=== PATIENT | female | born 1955 | race Caucasian/White ===

== ENCOUNTER 2021-11-19 12:44 | Outpatient (REF) | payer OTHER, SELFPAY ==
--- NOTE | ~2021-11-19 | MM_ITS ---
EXAMINATION: MM SCREENING DIGITAL BREAST TOMOSYNTHESIS, BILATERAL CLINICAL INFORMATION: Screening. Asymptomatic. The lifetime risk of breast cancer based on the Tyrer-Cuzick Model is 10%. COMPARISON: Outside mammography: 12/07/2015 ([facility]). TECHNIQUE: Digital breast tomosynthesis is performed in both the craniocaudal and mediolateral oblique views along with computer-aided detection (CAD). Synthesized 2D images are generated from the tomosynthesis. FINDINGS: There are scattered areas of fibroglandular density (ACR BI-RADS breast composition Category b). Parenchymal pattern is similar to previous outside exam. There are scattered asymmetries and fine fibronodular pattern again noted. No significant mass or architectural abnormality. No abnormal calcifications. The axilla and skin contours are unremarkable. MM/MM tomosynthesis screening BI IMPRESSION: No significant changes from prior outside exam 12/07/2015. ASSESSMENT: BI-RADS 2: Benign RECOMMENDATION: Routine annual mammography screening. This patient's information was entered into a reminder system with a target due date for their next mammogram.
--- NOTE | ~2021-11-19 | MM_ITS ---
EXAMINATION: BONE DENSITOMETRY CLINICAL INDICATION: Asymptomatic menopausal state. COMPARISON: None (current study represents initial baseline exam). TECHNIQUE: Using a Neocis DXA System (software version: 13.1) manufactured by [employer], dual-energy x-ray absorptiometry was performed of the lumbar spine and left hip. The images are of good technical quality. Summary results are attached. FINDINGS: AP SPINE L1-L4: BMD 1.311 g/cm2, Z-score 1.6, T-score 1.1, normal. LEFT FEMUR, NECK: BMD 1.124 g/cm2, Z-score 1.4, T-score 0.6, normal. LEFT FEMUR, TOTAL: BMD 1.364 g/cm2, Z-score 3.3, T-score 2.8, normal. IDENTIFIED RISK FACTORS: Rheumatoid arthritis, osteoporosis, tobacco use (current smoker), menopause. HISTORY OF FRACTURE: None listed. MEDICATIONS: Calcium supplements or multivitamin, vitamin D. MM/XR DEXA axial skeleton IMPRESSION: 1. DIAGNOSIS: Normal bone density based on the lowest T-score value of 0.6 in the femoral neck applying World Health Organization criteria. 2. 10-YEAR FRACTURE RISK PREDICTION, FRAX: According to the guidelines, FRAX calculation should only be performed on patients in the osteopenia bone density category. Therefore, FRAX was not performed on this patient. 3. Treatment Recommendations: NOF guidelines recommend consideration for treatment in postmenopausal women and men age 50 and older presenting with the following: -A hip or vertebral (clinical or morphometric) fracture. -T-score less than or equal to -2.5 at the femoral neck or spine after appropriate evaluation to exclude secondary causes. -Low bone mass at the hip or spine and a 10-year fracture probability by FRAX of greater than or equal to 3% for hip fracture or greater than or equal to 20% for major osteoporotic fracture based on the [place] adapted WHO algorithm. 4. Other Recommendations: All treatment decisions require clinical judgment and consideration of individual patient factors, including patient preferences, comorbidities, previous drug use, risk factors not captured in the FRAX model (e.g. frailty, falls, vitamin D deficiency, increased bone turnover, interval significant decline in bone density) and possible under or overestimation of fracture risk by FRAX. FUTURE SCAN RECOMMENDATION: People with diagnosed cases of osteoporosis or at high risk for fracture should have regular bone mineral density tests. For patients eligible for Medicare, routine testing is allowed once every 2 years. The testing frequency can be increased to one year for patients who have rapidly progressing disease, those who are receiving or discontinuing medical therapy to restore bone mass, or have additional risk factors.
== END 2021-11-19 12:45 | disposition home or self-care (01) ==
LOC: HO.MAMMO 12:44
PROVIDERS: PCP Nurse Practitioner Family; Visit Provider Nurse Practitioner Family
DX: Z13.820 Encounter for screening for osteoporosis (principal); Z78.0 Asymptomatic menopausal state; M05.9 Rheumatoid arthritis with rheumatoid factor, unspecified; F17.200 Nicotine dependence, unspecified, uncomplicated
CPT/HCPCS: 77063; 77067; 77080

== ENCOUNTER 2022-09-06 08:45 | Outpatient (REF) | payer OTHER, SELFPAY ==
[2022-09-06 09:09] LABS: MANUAL DIFF FLAG NO
[2022-09-06 09:19] LABS: Basophils Absolute Auto 0.1 X10*3/uL (0.0-0.2); Basophils Percent Auto 1.1 % (0-2); Eosinophils Absolute Auto 0.2 X10*3/uL (0.0-0.4); Eosinophils Percent Auto 3.9 % (0-4); Hematocrit 44.7 % (37.0-47.0); Hemoglobin 14.6 g/dl (12.0-16.0); Imm Gran Abs Auto 0.03 X10*3/uL (0.00-0.03); Imm Gran Pct Auto 0.6 % (0.0-0.4); Lymphocytes Absolute Auto 1.6 X10*3/uL (1.2-4.9); Lymphocytes Percent Auto 34.8 % (20-40); Mean Corpuscular HGB Conc 32.7 g/dl (31.0-35.0); Mean Corpuscular Hemoglobin 29.9 pg (27.0-33.0); Mean Corpuscular Volume 91.4 fL (80.0-98.0); Mean Platelet Volume 11.3 fL (9.4-12.3); Monocytes Absolute Auto 0.5 X10*3/uL (0.1-1.2); Monocytes Percent Auto 10.1 % (2-11); Neutrophils Absolute Auto 2.3 x10*3/uL (2.0-8.3); Neutrophils Percent Auto 49.5 % (45-73); Platelet Count 164 X10*3/uL (160-400); Red Blood Count 4.89 X10*6/uL (4.20-5.50); Red Cell Distribution Width 12.1 % (11.0-16.0); White Blood Count 4.7 X10*3/uL (4.8-10.8)
[2022-09-06 09:29] LABS: Estimated Average Glucose 186 mg/dL; Hemoglobin A1C 250.4763 umol/L; Hemoglobin A1c % 8.1 %
[2022-09-06 09:54] LABS: Alanine Aminotransferase 29 U/L (0-31); Aspartate Amino Transferase 41 U/L (5-31); Estimated Glomerular Filt Rate > 60
[2022-09-06 10:08] LABS: Alanine Aminotransferase 30 U/L (0-31); Albumin Level 4.3 g/dL (3.5-5.0); Alkaline Phosphatase 39 U/L (39-117); Anion Gap 14 (12-20); Aspartate Amino Transferase 42 U/L (5-31); Blood Urea Nitrogen 12 mg/dL (9-16); Calcium 9.3 mg/dL (8.4-10.2); Carbon Dioxide 28 mmol/L (22-29); Chloride 101 mmol/L (96-108); Cholesterol 151 mg/dL; Estimated Glomerular Filt Rate > 60; Glucose Fasting 181 mg/dL (60-99); HDL Cholesterol 36 mg/dL; LDL Cholesterol Calculated 73 mg/dl; Potassium 3.4 mmol/L (3.3-5.1); Sodium 140 mmol/L (135-145); Total Protein 6.7 g/dL (6.5-8.0); Triglycerides 211 mg/dL
[2022-09-06 10:12] LABS: TSH reflex Free T4 1.06 uIU/mL (0.32-4.0)
[2022-09-06 11:17] LABS: Appearance Urine Cloudy; Color Urine Dark Yellow; Glucose Urine UA Negative (Negative); Leukocyte Esterase Urine Negative (Negative); Nitrite Urine Negative (Negative); Specific Gravity - Urine >= 1.030 (1.005-1.025); UMIC TRIGGER UACC YES; Urine Blood Negative (Negative); Urine Ketones Negative (Negative); Urine Protein 30 (1+) mg/dL (Neg-Trace)
[2022-09-06 11:22] LABS: Bacteria Urine 3+ (None Seen); Hyaline Casts Urine 0-2 /LPF (0-2); RBC Urine 0-2 /HPF (0-2); Squamous Epithelial Cell Urine >20 /HPF (0-2); UACC Culture Trigger YES
== END 2022-09-06 08:46 | disposition home or self-care (01) ==
LOC: HO.LAB 08:45
PROVIDERS: Absent Provider Internal Medicine Rheumatology; PCP Nurse Practitioner Family; Visit Provider Nurse Practitioner Family
DX: M06.09 Rheumatoid arthritis without rheumatoid factor, multiple sites (principal)
CPT/HCPCS: 36415; 80053; 80061; 81001; 82565; 83036; 84443; 84450; 84460; 85025; 87086

== ENCOUNTER 2022-12-03 08:40 | Outpatient (REF) | payer OTHER, SELFPAY ==
[2022-12-03 11:23] LABS: MANUAL DIFF FLAG NO
[2022-12-03 11:33] LABS: Appearance Urine Cloudy; Color Urine Dark Yellow; Glucose Urine UA Negative (Negative); Leukocyte Esterase Urine Trace (Negative); Nitrite Urine Negative (Negative); Specific Gravity - Urine 1.025 (1.005-1.025); UMIC TRIGGER UACC YES; Urine Blood Negative (Negative); Urine Ketones Negative (Negative); Urine Protein 30 (1+) mg/dL (Neg-Trace)
[2022-12-03 11:38] LABS: Basophils Absolute Auto 0.1 X10*3/uL (0.0-0.2); Basophils Percent Auto 0.9 % (0-2); Eosinophils Absolute Auto 0.2 X10*3/uL (0.0-0.4); Eosinophils Percent Auto 3.5 % (0-4); Hematocrit 42.7 % (37.0-47.0); Hemoglobin 13.4 g/dl (12.0-16.0); Imm Gran Abs Auto 0.01 X10*3/uL (0.00-0.03); Imm Gran Pct Auto 0.2 % (0.0-0.4); Lymphocytes Absolute Auto 1.5 X10*3/uL (1.2-4.9); Lymphocytes Percent Auto 28.3 % (20-40); Mean Corpuscular HGB Conc 31.4 g/dl (31.0-35.0); Mean Corpuscular Hemoglobin 28.8 pg (27.0-33.0); Mean Corpuscular Volume 91.6 fL (80.0-98.0); Mean Platelet Volume 12.9 fL (9.4-12.3); Monocytes Absolute Auto 0.7 X10*3/uL (0.1-1.2); Monocytes Percent Auto 12.3 % (2-11); Neutrophils Percent Auto 54.8 % (45-73); Platelet Count 164 X10*3/uL (160-400); Red Blood Count 4.66 X10*6/uL (4.20-5.50); Red Cell Distribution Width 13.4 % (11.0-16.0); White Blood Count 5.5 X10*3/uL (4.8-10.8)
[2022-12-03 11:45] LABS: Estimated Average Glucose 154 mg/dL
[2022-12-03 12:02] LABS: Bacteria Urine Trace (None Seen); RBC Urine 0-2 /HPF (0-2); WBC Urine 0-5 /HPF (0-5)
[2022-12-03 12:15] LABS: Alanine Aminotransferase 20 U/L (0-31); Albumin Level 4.4 g/dL (3.5-5.0); Alkaline Phosphatase 37 U/L (39-117); Anion Gap 14 (12-20); Aspartate Amino Transferase 25 U/L (5-31); Bilirubin Total 0.9 mg/dL (0.0-1.0); Blood Urea Nitrogen 16 mg/dL (9-16); Calcium 9.4 mg/dL (8.4-10.2); Carbon Dioxide 30 mmol/L (22-29); Chloride 100 mmol/L (96-108); Cholesterol 150 mg/dL; Estimated Glomerular Filt Rate > 60; Glucose Fasting 154 mg/dL (60-99); HDL Cholesterol 37 mg/dL; LDL Cholesterol Calculated 62 mg/dl; Potassium 3.4 mmol/L (3.3-5.1); Sodium 141 mmol/L (135-145); TSH reflex Free T4 1.31 uIU/mL (0.32-4.0); Total Protein 6.7 g/dL (6.5-8.0); Triglycerides 259 mg/dL
[2022-12-03 12:18] LABS: Creatinine Urine 330.21 mg/dL; Microalbum/Creatinine Ratio Ur 26.3 ug/mg cr
== END 2022-12-03 08:41 | disposition home or self-care (01) ==
LOC: HO.HMGCLDS 08:40
PROVIDERS: PCP Nurse Practitioner Family; Visit Provider Nurse Practitioner Family
DX: E11.9 Type 2 diabetes mellitus without complications (principal)
CPT/HCPCS: 36415; 80053; 80061; 81001; 82043; 83036; 84443; 85025

== ENCOUNTER 2023-02-11 10:56 | Outpatient (REF) | payer OTHER, SELFPAY ==
--- NOTE | ~2023-02-11 | MM_ITS ---
EXAMINATION: MM SCREENING DIGITAL BREAST TOMOSYNTHESIS, BILATERAL CLINICAL INFORMATION: Screening. Asymptomatic. The lifetime risk of breast cancer based on the Tyrer-Cuzick Model is 8%. COMPARISON: Mammography: This study is compared with prior exams dating back to 2016. TECHNIQUE: Digital breast tomosynthesis is performed in both the craniocaudal and mediolateral oblique views along with computer-aided detection (CAD). Synthesized 2D images are generated from the tomosynthesis. FINDINGS: There are scattered areas of fibroglandular density (ACR BI-RADS breast composition Category b). There are no significant masses, abnormal calcifications, or other abnormalities. MM/MM tomosynthesis screening BI IMPRESSION: No mammographic evidence of malignancy. ASSESSMENT: BI-RADS BI-RADS 1 - Negative RECOMMENDATION: Routine annual mammography screening. 1 year F/U This patient's information was entered into a reminder system with a target due date for their next mammogram.
== END 2023-02-11 10:57 | disposition home or self-care (01) ==
LOC: HO.MAMMO 10:56
PROVIDERS: PCP Nurse Practitioner Family; Visit Provider Nurse Practitioner Family
DX: Z12.31 Encounter for screening mammogram for malignant neoplasm of breast (principal)
CPT/HCPCS: 77063; 77067

== ENCOUNTER → 2023-02-11 11:00 | Outpatient (BNV) | payer OTHER, SELFPAY | PROVIDERS: PCP Nurse Practitioner Family; Visit Provider Radiology Diagnostic Radiology | DX: Z12.31 Encounter for screening mammogram for malignant neoplasm of breast (principal) | CPT/HCPCS: 77063; 77067 ==

== ENCOUNTER 2023-08-05 14:08 | Outpatient (AMB) | payer OTHER, SELFPAY ==
--- NOTE | 2023-08-05 14:10 | MHC.PC.OV ---
Vital Signs 08/05/23 14:14 Height 5 ft 5 in Weight 233 lb BMI 38.8 BP 132/70 Blood Pressure Location Rt brachial Position Sitting Pulse 68 Pulse Source Pulse Oximeter Pulse Oximetry (%) 94 Oxygen Delivery Method Room Air Intake Visit Reasons: 4m follow up ( Medications ) Intake Note: Pt is here today for her 4 mo. f/u Allergies codeine Allergy (Intermediate, Verified 08/05/23 14:11) Hives Tobacco use date assessed: 08/05/23 Fall risk assessment: No Falls in past year Dental Screening Dental Screen Date: 08/05/23 Did you have a dental visit in the last 12 months?: No Was dental information given to patient?: No HPI 4m follow up ( Medications ) HPI Details Pt is a diabetic, on an CARRILLO and a statin. A1C in office today is 6.1. Microalbumin is up to date. Denies polyuria, polydipsia, and neuropathy. Pt denies any signs and symptoms of hypoglycemia and does know how to correct it. Pt has not been checking her blood sugar but has been watching her diet. Will decrease metformin from 500mg bid to 500mg daily (having diarrhea). Refused pneumo vaccines today. [facility] Medical History DM2 (diabetes mellitus, type 2) Chronic constipation Polyarthralgia Smoker Nephrolithiasis Family History Daughter Mental health disorder Social History Housing: Apartment Patient Tobacco Use Status: Former Tobacco user e-Cigarette/Vaping Use: Currently Using (sometimes ) Second Hand Smoke Exposure: No service: No Current occupational status: employed Current occupation: [employer] Current occupational exposures/hazards: No Cognitive needs: No Hearing needs: No Vision needs: No Questionnaire Thrive Questionnaire Date Thrive assessed: 09/09/22 NATHALIE-7 AMB Questionnaire NATHALIE-7 Date NATHALIE - 7 assessed: 09/09/22 Source: Developed by Drs. Sanjay Mcclendon, Phyllis Christopher, Brennan Shah and colleagues, with an educational juan from [employer] Review of Systems Const Reports as per HPI Physical exam (Primary Care) Vital Signs: Last Vital Signs Pulse 68 08/05/23 14:14 BP 132/70 08/05/23 14:14 Pulse Ox 94 08/05/23 14:14 Oxygen Delivery Method Room Air 08/05/23 14:14 BMI result Body Mass Index 38.8 Tobacco/Smoking Status: Tobacco use Status Tobacco use date assessed 08/05/23 08/05/23 14:18 Patient Tobacco Use Status Former Tobacco user 08/05/23 14:11 e-Cigarette/Vaping Use Currently Using (sometimes ) 08/05/23 14:11 Thrive Assessment: Date of Thrive Assessment Date Thrive assessed 09/09/22 08/05/23 14:11 Const General: cooperative Nutritional Appearance: obese Orientation/consciousness: patient oriented x3 Resp Effort & Inspection: normal respiratory effort Auscultation: clear to auscultation bilaterally Cardio Rate: regular rate Rhythm: regular rhythm Heart sounds: S1 normal heart sound present and S2 normal heart sound present Neuro General: patient oriented x3 Extrem Other: bilat feet: large bunions bilat, feet dry and intact, + sensation with use of monofilament Psych Appearance: grossly normal Mental Status: mental status grossly normal Speech and movement: Normal speech and movement present Affect: normal affect Attitude: cooperative Thought process: Normal thought process present Thought content: Normal thought content present Insight: Good insight present (Psych) Judgement: Good judgement present (Psych) Results AMB Hemoglobin A1c AMB Hemoglobin A1c 6.1 % Last Edit by Ghada Oh CMA on 08/05/23 14:30 Results Reviewed Results Reviewed: Laboratory Last Values Hgb A1c (Clinic) 6.1 % (4.0-6.0) H 08/05/23 14:26 Assessment and Plan Assessment & Plan (1) DM2 (diabetes mellitus, type 2): Code(s): E11.9 - Type 2 diabetes mellitus without complications Plan: Labs ordered Plan The patient agreed to the use of a neuropsychology medical consultant for this encounter. Scribed for RADHA Dodd by Za Venegas neuropsychology medical consultant, on 08/05/2023 at 14:30 EST. Orders: Orders Comprehensive [place]. Panel Fast Today E11.9 - Type 2 diabetes mellitus without complications Complete Blood Count Auto Diff Today E11.9 - Type 2 diabetes mellitus without complications TSH reflex Free T4 Today E11.9 - Type 2 diabetes mellitus without complications UA CC w/rflx Micro + Cult Today E11.9 - Type 2 diabetes mellitus without complications Lipid Panel Today E11.9 - Type 2 diabetes mellitus without complications AMB Hemoglobin A1c Today R73.03 - Prediabetes Medications: Changed From metformin ER 500 mg PO BID 90 days 180 tabs 1RF To metformin ER 500 mg PO DAILY 90 tabs 1RF 90 days Coding Level of Care Code Est Pt Level 3 (39825) Diagnoses DM2 (diabetes mellitus, type 2) E11.9
[2023-08-05 14:14] VITALS: BP 132/70; PULSE 68; O2SAT 94; BMI 38.8
== END 2023-08-05 16:12 | disposition home or self-care (01) ==
PROVIDERS: PCP Nurse Practitioner Family; Visit Provider Nurse Practitioner Family
DX: R73.03 Prediabetes (principal); E11.9 Type 2 diabetes mellitus without complications
CPT/HCPCS: 83036; 99213

== ENCOUNTER 2024-12-29 09:52 | Outpatient (REF) | payer MEDICARE, SELFPAY ==
--- OUTSIDE RECORDS SUMMARY | 2024-12-29 10:48 | XMS_ITS | Clinical Summary ---
Author Organization [facility] Facility Address [address] [place] [address], [place] [address] Care Team Providers Care Education Professor Name Role Phone Nolan Taylor NP Primary Care Provider [phone] Social History Tobacco Use Types Packs/Day Years Used Date Smoking Tobacco: Never Assessed Sex and Gender Information Value Date Recorded Sex Assigned at Not on file Legal Sex Male 11:43 AM EDT Gender Identity Not on file Sexual Orientation Not on file Plan of Treatment Health Maintenance Due Date Last Done Comments Colorectal Cancer Screening: Annual FOBT 2003 Colorectal Cancer Screening: Colonoscopy 2003 Colorectal Cancer Screening: Sigmoidoscopy 2003 Pneumococcal Vaccine: 50+ Ye ars (1 of - PCV) 2004 Influenza Vaccine (Season Ended) 2025 Hepatitis B Vaccine Aged Out No longe r eligible based on patient's age to complete this topic [place] [address] Care Teams Education Professor Relationship Specialty Start Date End Date Nolan Taylor NP [facility] [place] [address] PCP - General Nurse Practitioner 12/15/22
[2024-12-29 13:29] LABS: MANUAL DIFF FLAG NO
[2024-12-29 13:41] LABS: Basophils Absolute Auto 0.1 X10*3/uL (0.0-0.2); Basophils Percent Auto 0.7 % (0-2); Eosinophils Absolute Auto 0.1 X10*3/uL (0.0-0.4); Eosinophils Percent Auto 1.1 % (0-4); Hematocrit 35.1 % (37.0-47.0); Hemoglobin 10.5 g/dl (12.0-16.0); Imm Gran Abs Auto 0.05 X10*3/uL (0.00-0.03); Imm Gran Pct Auto 0.5 % (0.0-0.4); Lymphocytes Absolute Auto 1.3 X10*3/uL (1.2-4.9); Lymphocytes Percent Auto 13.7 % (20-40); Mean Corpuscular HGB Conc 29.9 g/dl (31.0-35.0); Mean Corpuscular Hemoglobin 24.4 pg (27.0-33.0); Mean Corpuscular Volume 81.4 fL (80.0-98.0); Mean Platelet Volume 11.6 fL (9.4-12.3); Monocytes Absolute Auto 0.7 X10*3/uL (0.1-1.2); Monocytes Percent Auto 7.2 % (2-11); Neutrophils Absolute Auto 7.2 x10*3/uL (2.0-8.3); Neutrophils Percent Auto 76.8 % (45-73); Platelet Count 269 X10*3/uL (160-400); Red Blood Count 4.31 X10*6/uL (4.20-5.50); Red Cell Distribution Width 14.8 % (11.0-16.0); White Blood Count 9.4 X10*3/uL (4.8-10.8)
[2024-12-29 13:52] LABS: Estimated Average Glucose 338 mg/dL; Hemoglobin A1c % 13.4 % (<6.0)
[2024-12-29 14:15] LABS: Alanine Aminotransferase 11 U/L (0-31); Albumin Level 4.2 g/dL (3.5-5.0); Alkaline Phosphatase 63 U/L (39-117); Anion Gap 17 (12-20); Aspartate Amino Transferase 24 U/L (5-31); Bilirubin Total 0.4 mg/dL (0.0-1.0); Blood Urea Nitrogen 16 mg/dL (9-16); Calcium 9.7 mg/dL (8.4-10.2); Carbon Dioxide 25 mmol/L (22-29); Chloride 100 mmol/L (96-108); Cholesterol 187 mg/dL (<200); Estimated Glomerular Filt Rate > 60; HDL Cholesterol 46 mg/dL (>40); LDL Cholesterol Calculated 82 mg/dL (<100); Potassium 4.1 mmol/L (3.3-5.1); Sodium 138 mmol/L (135-145); Total Protein 7.5 g/dL (6.5-8.0); Triglycerides 296 mg/dL (<150)
[2024-12-29 14:16] LABS: Glucose Fasting 374 mg/dL (60-99)
[2024-12-29 14:19] LABS: TSH reflex Free T4 0.87 uIU/mL (0.32-4.0); Vitamin D 25-OH Total 21.8 ng/mL (>30)
== END 2024-12-29 09:53 | disposition home or self-care (01) ==
LOC: HO.HMGCLDS 09:52
PROVIDERS: PCP Nurse Practitioner Family; Visit Provider Nurse Practitioner Family
DX: E11.9 Type 2 diabetes mellitus without complications (principal); Z78.0 Asymptomatic menopausal state; R19.7 Diarrhea, unspecified; B37.9 Candidiasis, unspecified; F17.200 Nicotine dependence, unspecified, uncomplicated; Z71.6 Tobacco abuse counseling
CPT/HCPCS: 36415; 80053; 80061; 82306; 83036; 84443; 85025; 96127; 99212

== ENCOUNTER 2024-12-29 10:10 | Outpatient (AMB) | payer MEDICARE, SELFPAY ==
[2024-12-29 10:26] VITALS: BP 112/70; PULSE 75; O2SAT 95; BMI 38.8
--- NOTE | 2024-12-29 10:26 | A.OFFPC_ITS ---
Vital Signs 12/29/24 10:26 Height 5 ft 5 in Weight 233 lb BMI 38.8 BP 112/70 Blood Pressure Location Rt brachial Position Sitting Pulse 75 Pulse Source Pulse Oximeter Pulse Oximetry (%) 95 Oxygen Delivery Method Room Air Intake Visit Reasons: follow up-update insurance [employer] Required: No Accompanied by: Daughter Allergies codeine Allergy (Intermediate, Verified 12/29/24 10:29) Hives Medication List - Last Reconciled 12/29/24 by YULIET Srivastava-WENDI abatacept (Orencia ClickJect) mg subcut acetaminophen ER 1,300 mg PO Q8H blood sugar diagnostic (OneTouch Ultra Test strips) Use to check fasting blood sugar and a random blood sugar daily. blood-glucose meter (OneTouch Ultra2 Meter) Use to check fasting blood sugar and a random blood sugar daily. calcium carbonate (Calcium 600) 600 mg PO DAILY [extended shower chair Use daily for safety in personal care. RA/OA for multiple joints including neck, back, hips, knees.] FreeStyle Gilbert Lite (blood-glucose meter) tid NS FreeStyle Lancets (lancets) tid testing NS FreeStyle Lite Strips (blood sugar diagnostic) TID NS FreeStyle Test (blood sugar diagnostic) tid testing NS gabapentin 400 mg PO TID 30 days lancets (OneTouch Delica Lancets) Use to check fasting blood sugar and a random blood sugar daily. leflunomide 20 mg PO DAILY lisinopril-hydrochlorothiazide 20-25 mg 1 tab PO DAILY 90 days magnesium oxide 500 mg PO DAILY metformin ER 500 mg PO DAILY 90 days metoprolol succinate ER 100 mg PO DAILY 90 days mupirocin 2% 1 appl topical BID PRN 30 days pantoprazole 20 mg PO BID 90 days potassium mg PO .qd rosuvastatin 10 mg PO DAILY 90 days sucralfate 1 g PO QID Tobacco use date assessed: 12/29/24 Fall risk assessment: No Falls in past year Last assessed Fall Risk: 12/29/24 Dental Screening Dental Screen Date: 12/29/24 Did you have a dental visit in the last 12 months?: Yes Did you have a dental problem in the last 6 months where you did not have access to dental care?: No Was dental information given to patient?: Patient has dentist HPI follow up-update insurance HPI Details Chief Complaint The patient presents for follow-up regarding her diabetes management and reports gastrointestinal symptoms. History of Present Illness The patient is a 69-year-old female presenting with a follow-up for Type 2 Diabetes Mellitus management. Due to previous insurance difficulties, she had not attended regular appointments but is now managing her healthcare actively. The patient currently uses Metformin 500 mg once daily and reports persistent diarrhea, primarily after meals. Her concerns center around potential repercussions from diet-related intake. Gastrointestinal studies are underway to elucidate the cause of diarrhea. She denies any blood in stool, fever, chills, or notable abdominal pain. The patient is open to less invasive testing such as a Cologuard test for colon cancer screening in lieu of a colonoscopy. Lastly, pt reports having quite a few yeast infections. I explained this could be for a lot of different reasons. I will send cream use external from genitalia, and oral fluconazole, will await lab results. Social History - Insurance issues have previously hinde red healthcare access, now resolved. - Dietary intake includes significant co nsumption of diet foods potentially affecting gastrointestinal health. Health Maintenance - Mammogram ordered - Cologuard test ordered for colorectal cancer screening - Encouraged regular foot care and use o f foot cream - Recommended eye examination, last cond ucted two years ago Review of Systems - Gastrointestinal: Reports diarrhea - Constitutional: Denies fever, chills - Gastrointestinal: Denies abdominal quang n, blood in stool Physical Exam General: Cooperative, healthy appearing, comfortable, no acute distress and well developed, morbid obesity Orientation: Patient oriented x3 Limitations: No limitations Head: Normal to inspection Ears: Hearing grossly normal bilaterally Nose: Normal external nose present Face and sinus: Normal facial exam Eyes: Appearance normal, both eyes and all related structures Neck: Normal visual inspection and Yes full ROM Respiratory: Normal respiratory effort and able to speak in complete sentences. Clear to auscultation bilaterally Cardiovascular: Regular rate and rhythm. Normal S1 and S2, no carotid bruits GI: Normal to inspection. Soft to palpation and nontender Skin: No rashes or lesions noted Neuro: Patient oriented x3 Extremities: Normal to inspection, feet with positive sensation, bunions bilaterally, dry callus on the right foot, lateral distal right foot callus formation with dry skin Results Plan The patient will continue on her current regimen of metformin 500 mg once daily while awaiting results from her comprehensive lab panel, including an A1c to monitor diabetes control. Colorectal cancer screening will be performed using a Cologuard test due to her preference. Preventive care is reinforced with a mammogram order and recommendations for an eye exam given her history. To address foot health, she is advised on the consistent application of foot cream. Further management will be based on the forthcoming lab results and symptomatic changes. Patient was informed and verbally consented to the use of an ambient scribe for clinic note documentation during this visit. Discussion Notes We discussed her current diabetes management plan and the need for regular monitoring of her glucose levels with the recommended lab tests, including A1c. I have outlined the potential connection between her dietary choices and gastrointestinal symptoms, emphasizing caution with diet products. Given her concern for more invasive procedures, I suggested the Cologuard test as an alternative to the commonly recommended colonoscopy. We agreed on additional preventive screenings with a mammogram and eye exam, important in her age group and health status. All treatment plans and recommendations were discussed with her, and she has agreed to follow the plan established today. Patient Instructions - Continue taking Metformin 500 mg after meals each day. - Use a foot cream daily to reduce dryne ss and callus formation. - Plan to have your Cologuard test as de scribed. - Attend scheduled mammogram and arrange an eye examination. - Follow a consistent dietary routine an d monitor for any changes or worsening of diarrhea. [facility] Medical History DM2 (diabetes mellitus, type 2) Chronic constipation Polyarthralgia Smoker Nephrolithiasis Surgical History No pertinent past surgical history Family History Daughter Mental health disorder Social History Housing: Apartment Patient Tobacco Use Status: Former Tobacco user e-Cigarette/Vaping Use: Currently Using (sometimes ) Second Hand Smoke Exposure: No service: No Current occupational status: employed Current occupation: [employer] Current occupational exposures/hazards: No Cognitive needs: No Hearing needs: No Vision needs: No Questionnaire PHQ-9 Over the last 2 weeks, how often have you been bothered by any of the following problems? 1. Little interest or pleasure in doing things: several days 2. Feeling down, depressed, or hopeless: several days 3. Trouble falling or staying asleep, or sleeping too much: more than half the days 4. Feeling tired or having little energy: more than half the days 5. Poor appetite or overeating: more than half the days 6. Feeling bad about yourself - or that you are a failure or have let yourself or your family down: not at all 7. Trouble concentrating on things, such as reading the newspaper or watching television: not at all 8. Moving or speaking so slowly that other people could have noticed. Or the opposite - being so fidgety or restless that you have been moving around a lot more than usual: not at all 9. Thoughts that you would be better off or of hurting yourself in some way: not at all Total score: 8 Depression Screening Interpretation: Positive (denies any si or hi, will have BH reach out to pt) Depression Screening Follow-up: Existing condition Depression Screening Done: Yes 77985 - PHQ-9 Billing: Yes Source: Developed by Drs. Sanjay Mcclendon, Phyllis Christopher, Brennan Shah and colleagues, with an educational juan from [employer]. Thrive Questionnaire Date Thrive assessed: 12/29/24 I am a: Patient What is your living situation today?: I have a steady place to live Within the past 12 months, did the food you bought not last and you didn't have the money to get more?: Often true Within the past 12 months, did you worry whether your food would run out before you got money to buy more?: Never true Do you have trouble paying for medicines?: No Do you have trouble getting transportation to medical appointments?: No Do you have trouble paying your heating and electricity bill?: No Do you have trouble taking care of your child, family member or friend?: No Do you have trouble with day-to-day activities such as bathing, preparing meals, shopping, managing finances, etc.?: Yes Are you currently unemployed and looking for a job?: No Are you interested in more education?: No Please select the resources that you would like help with: None Currently or been in a relationship where the following occur: No concerns reported THRIVE Score: 1 AUDIT C Alcohol Use Questionnaire (AUDIT-C) 1. How often do you have a drink containing alcohol?: Never 3. How often do you have six or more drinks on one occasion?: Never Total Score: 0 Score Reviewed/Action Taken: Yes NATHALIE-7 AMB Questionnaire NATHALIE-7 Date NATHALIE - 7 assessed: 12/29/24 Feeling nervous, anxious, or on edge: 0 = Not at all Not being able to stop or control worryin = Not at all Worrying too much about different things: 1 = Several days Trouble relaxin = Not at all Being so restless that it is hard to sit still: 0 = Not at all Becoming easily annoyed or irritable: 0 = Not at all Feeling afraid as if something awful might happen: 0 = Not at all Total NATHALIE-7 score (0-4 normal; 5-9 mild; 10-14 moderate; 15-21 severe): 1 Source: Developed by Drs. Sanjay Mcclendon, Phyllis Christopher, Brennan Shah and colleagues, with an educational juan from [employer]. NATHALIE-7 Assessment Billing NATHALIE-7 Assessment Tool: NATHALIE-7 Assessment 64024 (denies any si or hi) Physical exam (Primary Care) Vital Signs: Last Vital Signs Pulse 75 12/29/24 10:26 BP 112/70 12/29/24 10:26 Pulse Ox 95 12/29/24 10:26 Oxygen Delivery Method Room Air 12/29/24 10:26 BMI result Body Mass Index 38.8 Tobacco/Smoking Status: Tobacco use Status Tobacco use date assessed 12/29/24 12/29/24 10:38 Patient Tobacco Use Status Former Tobacco user 12/29/24 10:26 e-Cigarette/Vaping Use Currently Using (sometimes ) 12/29/24 10:26 PHQ-9: PHQ-9 Score PHQ-9: Total score 8 12/29/24 10:38 Depression Screening Interpretation: Positive (denies any si or hi, will have BH reach out to pt) Depression Screening Follow-up: Existing condition Thrive Assessment: Date of Thrive Assessment Date Thrive assessed 12/29/24 12/29/24 10:38 Currently or been in a relationship where the following occur: No concerns reported Coding Level of Care Code Est Pt Level 4 (35160) Diagnoses DM2 (diabetes mellitus, type 2) E11.9 Smoker F17.200 Diarrhea R19.7 Post-menopausal Z78.0 Yeast infection B37.9 Additional Codes PHQ-9 - 93965 - PHQ-9 Billing: Yes ([id number]) NATHALIE-7 Assessment Billing - NATHALIE-7 Assessment Tool: NATHALIE-7 Assessment 05733 ([id number]) Assessment & Plan Assessment & Plan (1) DM2 (diabetes mellitus, type 2): Code(s): E11.9 - Type 2 diabetes mellitus without complications Category: Medical (2) Smoker: Code(s): F17.200 - Nicotine dependence, unspecified, uncomplicated Category: Social Hx (3) Diarrhea: Code(s): R19.7 - Diarrhea, unspecified Category: Medical (4) Post-menopausal: Code(s): Z78.0 - Asymptomatic menopausal state Category: Medical (5) Yeast infection: Code(s): B37.9 - Candidiasis, unspecified Category: Medical Plan . Orders: Orders Complete Blood Count Auto Diff Today E11.9 - Type 2 diabetes mellitus without complications TSH reflex Free T4 Today E11.9 - Type 2 diabetes mellitus without complications Lipid Panel Today E11.9 - Type 2 diabetes mellitus without complications Microalbumin, Random (w Creat) Today E11.9 - Type 2 diabetes mellitus without complications GI Panel Today R19.7 - Diarrhea, unspecified H pylori Ag Stool Today R19.7 - Diarrhea, unspecified CDiff Gene PCR Today R19.7 - Diarrhea, unspecified Comprehensive [place]. Panel Fast Today E11.9 - Type 2 diabetes mellitus without complications UA CC w/rflx Micro + Cult Today E11.9 - Type 2 diabetes mellitus without complications MM screening mammo BI Today Z12.31 - Encounter for screening mammogram for malignant neoplasm of breast Vitamin D 25-OH Total Today Z78.0 - Asymptomatic menopausal state Referrals Lung Cancer Screening Referral F17.200 - Nicotine dependence, unspecified, uncomplicated Cologuard Test Z12.11 - Encounter for screening for malignant neoplasm of colon, Z12.12 - Encounter for screening for malignant neoplasm of rectum Medications: New fluconazole 150 mg PO Q3D 2 tabs 1RF ketoconazole 2% 1 appl topical BID 60 grams 0RF
--- OUTSIDE RECORDS SUMMARY | 2024-12-29 11:08 | XMS_ITS | Clinical Summary ---
Author Organization [facility] Facility Address [address] [place] [address], [place] [address] Care Team Providers Care Pipelines Superintendent Name Role Phone Nolan Talyor NP Primary Care Provider [phone] Social History Tobacco Use Types Packs/Day Years [...] patient's age to complete this topic [place] [address] Care Teams Pipelines Superintendent Relationship Specialty Start Date End Date Nolan Taylor NP [facility] [place] [address] PCP - General Nurse Practitioner 12/15/22
== END 2024-12-29 11:46 | disposition home or self-care (01) ==
PROVIDERS: PCP Nurse Practitioner Family; Visit Provider Nurse Practitioner Family
DX: E11.9 Type 2 diabetes mellitus without complications (principal); F17.200 Nicotine dependence, unspecified, uncomplicated; R19.7 Diarrhea, unspecified; Z78.0 Asymptomatic menopausal state; B37.9 Candidiasis, unspecified

== ENCOUNTER 2025-01-20 14:47 | Outpatient (AMB) | payer MEDICARE, SELFPAY ==
--- NOTE | 2025-01-20 14:51 | MHC.OFFVIS ---
Vital Signs 01/20/25 14:56 Height 5 ft 5 in Weight 230 lb 2.601 oz BMI 38.3 BP 108/64 Blood Pressure Location Rt brachial Position Sitting Pulse 71 Pulse Source Pulse Oximeter Pulse Oximetry (%) 97 Oxygen Delivery Method Room Air Intake Visit Reasons: Type 2 diabetes mellitus with hyperglycemia Intake Note: New patient internally referred by PCP Dr. Taylor for T2DM Patient will receive Michael 3 Plus through: [employer], if patient does not receive within 1-2 weeks, advised to contact office to be switched to a another [employer] company. Last Diabetic Eye exam: Due, couple years ago Last Podiatry Visit: Does not see a Oil Well Shooter Random Glucose: 218 mg/dl HgA1C: 13.4% 12/29/2024 R Programmer Required: No Accompanied by: Daughter Allergies codeine Allergy (Intermediate, Verified 01/20/25 15:03) Hives Medication List - Last Reconciled 01/20/25 by MARK Phelan abatacept (Orencia ClickJect) mg subcut acetaminophen ER 1,300 mg PO Q8H calcium carbonate (Calcium 600) 600 mg PO DAILY cholecalciferol (vitamin D3) 50 mcg PO DAILY dextrose (TRUEplus Glucose) 15 grams (32 mL) PO Q15M PRN [extended shower chair Use daily for safety in personal care. RA/OA for multiple joints including neck, back, hips, knees.] fluconazole 150 mg PO Q3D 2 doses FreeStyle [place] Lite (blood-glucose meter) tid NS FreeStyle Lancets (lancets) tid testing NS FreeStyle Lite Strips (blood sugar diagnostic) TID NS FreeStyle Test (blood sugar diagnostic) tid testing NS gabapentin 400 mg PO TID 30 days ketoconazole 2% 1 appl topical BID 30 days lancets (OneTouch Delica Lancets) Use to check fasting blood sugar and a random blood sugar daily. Lantus Solostar U-100 Insulin (insulin glargine) 10 units (0.1 mL) subcut QPM NS leflunomide 20 mg PO DAILY lisinopril-hydrochlorothiazide 20-25 mg 1 tab PO DAILY 90 days magnesium oxide 500 mg PO DAILY metformin ER 500 mg PO DAILY 90 days metoprolol succinate ER 100 mg PO DAILY 90 days mupirocin 2% 1 appl topical BID PRN 30 days pantoprazole 20 mg PO BID 90 days pen needle, diabetic Inject insulin once a day potassium mg PO .qd rosuvastatin 10 mg PO DAILY 90 days sucralfate 1 g PO QID tirzepatide (Mounjaro) 2.5 mg (0.5 mL) subcut QWEEK HPI Comments Details: This is a 69-year-old female with a past medical history of uncontrolled diabetes, microalbuminuria, rheumatoid arthritis and anemia presenting for an initial diabetic management consult. She is here with her daughter, Cammy. The patient says she was diagnosed only a few weeks ago with type 2 diabetes and that she was prediabetic before, but chart review shows that she has had a hemoglobin A1c above 6.5% since 2022. She was referred because her hemoglobin A1c increased from 6.1% to 13.4%. Patient sites dietary indiscretion and lack of exercise as the reason for this. Reviewed glucometer download for January 06 to January 20. Average glucose 265 In range 4% Highest for 409 Lowest 135 Current medication regimen: Metformin extended release 500 mg daily, Lantus 10 units at bedtime. She has been on metformin a long time, and she started Lantus a few weeks ago. Past medication: None Compliance issues: Diarrhea on higher doses of metformin, and she still has diarrhea on the lower dose. She does not drink juice or soda. She has coffee in the morning. She is trying to educate herself about a diabetic diet, and she also follows some tips from weight watchers. She has changed her diet a lot within the last week. Hypoglycemia symptoms: None Hyperglycemia symptoms: None Eye exam: Overdue, referred Microvascular complications: Microalbuminuria Macrovascular complications: None Hypertension: treated with metoprolol extended-release 100 mg daily, lisinopril-HCTZ 20-25 mg daily Hyperlipidemia: treated with rosuvastatin 10 mg daily ROS: Constitutional: No unexplained weight loss, fever, chills, fatigue or night sweats. Eyes: No vision changes, blurry vision, double vision Respiratory: No shortness of breath Cardiovascular: No chest pain, chest pressure or chest discomfort. No palpitations or pedal edema. Gastrointestinal: No anorexia, nausea, vomiting or diarrhea. No abdominal pain Neurologic: No headache, dizziness or syncope. Endocrine: No cold or heat intolerance. No polyuria or polydipsia. Physical exam: Constitutional: Alert, in no distress. Neck: Supple, Full range of motion. No lymphadenopathy. No palpable thyroid masses. Respiratory: Clear to auscultation. Cardiovascular: S1 S2 regular. No murmurs. Feet: Warm and well perfused. No clubbing, cyanosis or edema. Intact peripheral pulses. [facility] Medical History DM2 (diabetes mellitus, type 2) Chronic constipation Polyarthralgia Smoker Nephrolithiasis Surgical History No pertinent past surgical history Family History Daughter Mental health disorder Social History Housing: Apartment Patient Tobacco Use Status: Former Tobacco user e-Cigarette/Vaping Use: Currently Using (sometimes ) Second Hand Smoke Exposure: No service: No Current occupational status: employed Current occupation: [employer] Current occupational exposures/hazards: No Cognitive needs: No Hearing needs: No Vision needs: No Physical Exam Vital Signs: Last Vital Signs Pulse 71 01/20/25 14:56 BP 108/64 01/20/25 14:56 Pulse Ox 97 01/20/25 14:56 Oxygen Delivery Method Room Air 01/20/25 14:56 BMI result Body Mass Index 38.3 Results Reviewed Results Reviewed: Laboratory Last Values Glucose (Clinic) 218 mg/dL (60-115) H 01/20/25 15:11 Laboratory Tests 12/03/22 12/03/22 08/05/23 08:58 09:00 14:26 Creatinine Estimated GFR Hgb A1c (Clinic) 6.1 H Hemoglobin A1c % 7.0 Triglycerides Cholesterol LDL Cholesterol, Calc HDL Cholesterol TSH Urine Creatinine 330.21 Urine Microalbumin 87.0 Microalb/Creat Ratio 26.3 12/29/24 12/29/24 09:59 11:15 Creatinine 0.84 Estimated GFR > 60 Hgb A1c (Clinic) Hemoglobin A1c % 13.4 H Triglycerides 296 H Cholesterol 187 LDL Cholesterol, Calc 82 HDL Cholesterol 46 TSH 0.87 Urine Creatinine Urine Microalbumin Microalb/Creat Ratio Laboratory Tests 12/29/24 11:15 AST 24 ALT 11 Assessment & Plan Assessment & Plan (1) Uncontrolled diabetes mellitus with hyperglycemia: Code(s): E11.65 - Type 2 diabetes mellitus with hyperglycemia Category: Medical Plan: In summary this is a 69-year-old female with uncontrolled type 2 diabetes on Lantus insulin and metformin. Discussed pathophysiology of Type II Diabetes Mellitus with the patient in detail.? I explained the group home risks and complications associated with uncontrolled diabetes including nephropathy, neuropathy, peripheral vascular disease, retinopathy, increased risk of heart disease and stroke.? The patient is referred for an eye exam. Intolerant of higher doses of metformin, and she still has diarrhea on the lower dose. We will plan to try to stop this medication once blood sugars have improved. Increase Lantus from 10 units to 16 units at bedtime. Start Mounjaro 2.5 mg weekly. She denies contraindications to GLP 1. States sister had thyroid cancer but does not think medullary. She will confirm this before starting the medication. Continue Metformin extended release 500 mg once daily for now. Advised to DC this medication if she has low blood sugars under 70. Given and reviewed written instructions for hypo and hyperglycemia. Glucose gel packets sent to pharmacy. Diabetes meal planning and smart snack list given to patient. Recommended she review information on diabetes.org. Refer to dietitian. Patient says she is awaiting her 1st delivery of Michael 3 Plus CGM. I asked her to call if she has not received it by next week. Patient has used a sample before. Unfortunately no samples in the office today. Check B12 given metformin use and random microalbumin. Follow up in 4 weeks for diabetes. Orders: Orders Microalbumin, Random (w Creat) Today E11.9 - Type 2 diabetes mellitus without complications Vitamin B12 Today Z91.89 - Other specified personal risk factors, not elsewhere classified Referrals Process Control Operator Nutrition Referral E11.65 - Type 2 diabetes mellitus with hyperglycemia Ophthalmology Referral E11.65 - Type 2 diabetes mellitus with hyperglycemia Medications: New dextrose (TRUEplus Glucose) until symptoms of low blood sugar are controlled 15 grams (32 mL) PO Q15M PRN 128 mL 3RF hypoglycemia tirzepatide (Mounjaro) for 4 weeks 2.5 mg (0.5 mL) subcut QWEEK 2 mL 0RF Refilled FreeStyle Lite Strips (blood sugar diagnostic) TID 100 ea 5RF NS E11.9 - Type 2 diabetes mellitus without complications FreeStyle Lancets (lancets) tid testing 100 ea 5RF NS E11.9 - Type 2 diabetes mellitus without complications Patient Instructions: Increase Lantus from 10 units to 16 units at bedtime. Start Mounjaro 2.5 mg weekly. This will need a prior authorization. Continue Metformin extended release 500 mg once daily for now. If you have low blood sugars under 70 stop taking this. If you experience low blood sugar, treat this by eating a chewable fruit candy like skittles or jelly beans (about 8 pieces), 4 ounces (1/2 cup) of fruit juice (not diet), 1 tablespoon of honey or 4 glucose tablets or 1 glucose gel packet. If your blood sugar is under 55, take double the amount of one of the above. Recheck your blood sugar in 15 minutes. www.diabetes.org Coding Level of Care Code New Pt Level 5 (48604) Complex EM visit Add On G2211 Diagnoses Uncontrolled diabetes mellitus with hyperglycemia E11.65 Time Spent (min) 55 Comment Education, direct patient care, completing documentation
[2025-01-20 14:56] VITALS: BP 108/64; PULSE 71; O2SAT 97; BMI 38.3
[2025-01-20 15:18] LABS: Glucose, Whole Blood 218 mg/dL (60-115)
== END 2025-01-20 16:02 | disposition home or self-care (01) ==
LOC: HO.ENCR 14:48
PROVIDERS: PCP Nurse Practitioner Family; Visit Provider Physician Assistant Medical
DX: E11.65 Type 2 diabetes mellitus with hyperglycemia (principal); Z79.4 Long term (current) use of insulin

== ENCOUNTER → 2025-01-20 14:47 | Outpatient (BNVA) | payer MEDICARE, SELFPAY | PROVIDERS: PCP Nurse Practitioner Family; Visit Provider Physician Assistant Medical | DX: E11.65 Type 2 diabetes mellitus with hyperglycemia (principal); Z79.4 Long term (current) use of insulin; Z79.84 Long term (current) use of oral hypoglycemic drugs | CPT/HCPCS: 82947; 99202 ==

== ENCOUNTER 2025-02-24 14:19 | Outpatient (AMB) | payer MEDICARE, SELFPAY ==
--- NOTE | 2025-02-24 14:23 | A.OFFVIS_ITS ---
Vital Signs 02/24/25 14:27 Height 5 ft 5 in Weight 229 lb 4.492 oz BMI 38.2 BP 132/74 Blood Pressure Location Rt brachial Position Sitting Pulse 77 Pulse Source Pulse Oximeter Pulse Oximetry (%) 96 Oxygen Delivery Method Room Air Intake Visit Reasons: Type II Diabetes Intake Note: Patient present today to follow up on Type 2 Diabetes Mellitus. Last Diabetic Eye exam: 01/26/2025 [facility] Last Podiatry Visit: Does not see a Horse Rancher Random Glucose: 145 mg/dl HgA1C: 13.4% 12/29/2024/ Automatic Bandsaw Tender Required: No Accompanied by: Daughter Allergies codeine Allergy (Intermediate, Verified 02/24/25 14:27) Hives Medication List - Last Reconciled 02/24/25 by MARK Phelan abatacept (Orencia ClickJect) mg subcut acetaminophen ER 1,300 mg PO Q8H alcohol swabs (Alcohol Pads) 1 pad topical TID calcium carbonate (Calcium 600) 600 mg PO DAILY cholecalciferol (vitamin D3) 50 mcg PO DAILY dextrose (TRUEplus Glucose) 15 grams (32 mL) PO Q15M PRN [extended shower chair Use daily for safety in personal care. RA/OA for multiple joints including neck, back, hips, knees.] fluconazole 150 mg PO Q3D 2 doses FreeStyle [place] Lite (blood-glucose meter) tid NS FreeStyle Lancets (lancets) tid testing NS FreeStyle Lite Strips (blood sugar diagnostic) TID NS FreeStyle Test (blood sugar diagnostic) tid testing NS gabapentin 400 mg PO TID 30 days insulin glargine (Lantus Solostar U-100 Insulin) 16 units subcut QPM ketoconazole 2% 1 appl topical BID 30 days lancets (OneTouch Delica Lancets) Use to check fasting blood sugar and a random blood sugar daily. leflunomide 20 mg PO DAILY lisinopril-hydrochlorothiazide 20-25 mg 1 tab PO DAILY 90 days magnesium oxide 500 mg PO DAILY metformin ER 500 mg PO DAILY 90 days metoprolol succinate ER 100 mg PO DAILY 90 days mupirocin 2% 1 appl topical BID PRN 30 days pantoprazole 20 mg PO BID 90 days pen needle, diabetic Inject insulin once a day potassium mg PO .qd rosuvastatin 10 mg PO DAILY 90 days sertraline 50 mg PO DAILY sucralfate 1 g PO QID tirzepatide (Mounjaro) 7.5 mg (0.5 mL) subcut QWEEK HPI Comments Details: This is a 69-year-old female with a past medical history of uncontrolled diabetes, microalbuminuria, rheumatoid arthritis and anemia presenting for follow up. She is here with her daughter, Cammy. She has had type 2 diabetes since 2022. She was referred because her hemoglobin A1c increased from 6.1% to 13.4%. Patient sites dietary indiscretion and lack of exercise as the reason for this. Reviewed Michael 3 plus February 11 to February 24 CGM active 97% Average glucose 149 G IN 6.9% Glucose variability 17.7% Very high 0% High 14% Target range 86% 0% hypoglycemia She has occasional hyperglycemia after breakfast and dinner. Current medication regimen: Metformin extended release 500 mg daily, Lantus 16 units at bedtime and Mounjaro 5 mg weekly. Past medication: None Compliance issues: Diarrhea on higher doses of metformin, and she still has diarrhea on the lower dose. She is following a diabetic diet. She has an upcoming appointment with the dietitian. Hypoglycemia symptoms: None Hyperglycemia symptoms: None Eye exam: [facility]-no retinopathy Microvascular complications: Microalbuminuria Macrovascular complications: None Hypertension: treated with metoprolol extended-release 100 mg daily, lisinopril- HCTZ 20-25 mg daily Hyperlipidemia: treated with rosuvastatin 10 mg daily ROS: Constitutional: No unexplained weight loss, fever, chills, fatigue or night sweats. Eyes: No vision changes, blurry vision, double vision Respiratory: No shortness of breath Cardiovascular: No chest pain, chest pressure or chest discomfort. No palpitations or pedal edema. Gastrointestinal: No anorexia, nausea, vomiting or diarrhea. No abdominal pain Neurologic: No headache, dizziness or syncope. Endocrine: No cold or heat intolerance. No polyuria or polydipsia. Physical exam: Constitutional: Alert, in no distress. Neck: Supple, Full range of motion. No lymphadenopathy. No palpable thyroid masses. Respiratory: Clear to auscultation. Cardiovascular: S1 S2 regular. No murmurs. [facility] Medical History (Updated 02/24/25 @ 16:57 by MARK Phelan) Personal history of nicotine dependence DM2 (diabetes mellitus, type 2) Chronic constipation Polyarthralgia Nephrolithiasis Surgical History No pertinent past surgical history Family History Daughter Mental health disorder Social History Housing: Apartment Patient Tobacco Use Status: Former Tobacco user e-Cigarette/Vaping Use: Currently Using (sometimes ) Second Hand Smoke Exposure: No service: No Current occupational status: employed Current occupation: [employer] Current occupational exposures/hazards: No Cognitive needs: No Hearing needs: No Vision needs: No Physical Exam Vital Signs: Last Vital Signs Pulse 77 02/24/25 14:27 BP 132/74 02/24/25 14:27 Pulse Ox 96 02/24/25 14:27 Oxygen Delivery Method Room Air 02/24/25 14:27 BMI result Body Mass Index 38.2 Office Procedures Glucose Monitoring Details Details: see hpi 16996 - Glucose monitoring, continuous-physician I&R Procedure code (CPT) selection complete Results Reviewed Results Reviewed: Laboratory Tests 12/03/22 12/03/22 08/05/23 08:58 09:00 14:26 Creatinine Estimated GFR Hgb A1c (Clinic) 6.1 H Hemoglobin A1c % 7.0 Triglycerides Cholesterol LDL Cholesterol, Calc HDL Cholesterol TSH Urine Creatinine 330.21 Urine Microalbumin 87.0 Microalb/Creat Ratio 26.3 12/29/24 12/29/24 09:59 11:15 Creatinine 0.84 Estimated GFR > 60 Hgb A1c (Clinic) Hemoglobin A1c % 13.4 H Triglycerides 296 H Cholesterol 187 LDL Cholesterol, Calc 82 HDL Cholesterol 46 TSH 0.87 Urine Creatinine Urine Microalbumin Microalb/Creat Ratio Laboratory Tests 12/29/24 11:15 AST 24 ALT 11 Assessment & Plan Assessment & Plan (1) Uncontrolled diabetes mellitus with hyperglycemia: Code(s): E11.65 - Type 2 diabetes mellitus with hyperglycemia Category: Medical Qualifiers: Diabetes mellitus type: type 2 Qualified Code(s): E11.65 - Type 2 diabetes mellitus with hyperglycemia Plan: In summary this is a 69-year-old female with type 2 diabetes on Lantus, metformin and Mounjaro. Diabetes is now controlled per CGM. Discussed pathophysiology of Type II Diabetes Mellitus with the patient in detail.? I explained the exterminator risks and complications associated with uncontrolled diabetes including nephropathy, neuropathy, peripheral vascular disease, retinopathy, increased risk of heart disease and stroke.? Eye exam is up-to-date. Continue Lantus 16 units at bedtime. When you increase your dose of Mounjaro to 7.5 mg discontinue metformin. She has an upcoming appointment with the dietitian. Follow up in 6 weeks for type 2 diabetes. Orders: Orders AMB Glucose Monitoring Today MARK Phelan E11.9 - Type 2 diabetes mellitus without complications Medications: New alcohol swabs (Alcohol Pads) 1 pad topical TID 200 ea 5RF MARK Phelan E11.65 - Type 2 diabetes mellitus with hyperglycemia tirzepatide (Mounjaro) 7.5 mg (0.5 mL) subcut QWEEK 2 mL 0RF MARK Phelan Changed From Lantus Solostar U-100 Insulin (insulin glargine) 10 units (0.1 mL) subcut QPM 15 mL 0RF NS E11.65 - Type 2 diabetes mellitus with hyperglycemia To insulin glargine (Lantus Solostar U-100 Insulin) 16 units subcut QPM E11.65 - Type 2 diabetes mellitus with hyperglycemia Nolan Taylor, [facility]- Refilled pen needle, diabetic Inject insulin once a day 100 ea 5RF MARK Phelan E11.65 - Type 2 diabetes mellitus with hyperglycemia Patient Instructions: When you finish the prescription for Mounjaro 5 mg, start Mounjaro 7.5 mg weekly. When you start Mounjaro 7.5 mg, you can stop Metformin 500 mg daily. Continue Lantus 16 units daily. If you experience low blood sugar (under 70), treat this by eating a chewable fruit candy like skittles or jelly beans (about 8 pieces), 4 ounces (1/2 cup) of fruit juice (not diet), 1 tablespoon of honey or 4 glucose tablets. If your blood sugar is under 55, take double the amount of one of the above. Recheck your blood sugar in 15 minutes. Coding Level of Care Code Est Pt Level 4 (83796) Diagnoses Uncontrolled type 2 diabetes mellitus with hyperglycemia E11.65 Diabetes mellitus type: type 2 CPT Codes Details - CPT: 13048 - Glucose monitoring, continuous-physician I&R ([id number])
--- OUTSIDE RECORDS SUMMARY | 2025-02-24 14:23 | XMS_ITS | Clinical Summary ---
Author Organization [facility] Facility Address [address] [place] [address], [place] [address] Care Team Providers Care Loom Fixer Name Role Phone Nolan Taylor NP Primary Care Provider Social History Tobacco Use Types Packs/Day Years [...] Pneumococcal Vaccine: 50+ Ye ars (1 of 1 - PCV) 2004 Influenza Vaccine (#1) 2025 Hepatitis B Vaccine Aged Out No longe r eligible based on patient's age to complete this [place] [address] Care Teams Loom Fixer Relationship Specialty Start Date End Date Nolan Taylor NP [facility] [place] [address] PCP - General Nurse Practitioner 12/15/22
[2025-02-24 14:27] VITALS: BP 132/74; PULSE 77; O2SAT 96; BMI 38.2
[2025-02-24 14:43] LABS: Glucose, Whole Blood 145 mg/dL (60-115)
== END 2025-02-24 15:12 | disposition home or self-care (01) ==
LOC: HO.ENCR 14:20
PROVIDERS: PCP Nurse Practitioner Family; Visit Provider Physician Assistant Medical
DX: E11.65 Type 2 diabetes mellitus with hyperglycemia (principal)

== ENCOUNTER → 2025-02-24 14:19 | Outpatient (BNVA) | payer MEDICARE, SELFPAY | PROVIDERS: PCP Nurse Practitioner Family; Visit Provider Physician Assistant Medical | DX: E11.65 Type 2 diabetes mellitus with hyperglycemia (principal); Z79.4 Long term (current) use of insulin; Z79.85 Long-term (current) use of injectable non-insulin antidiabetic drugs | CPT/HCPCS: 82947; 99212 ==

== ENCOUNTER 2025-03-01 14:50 | Outpatient (AMB) | payer MEDICARE, SELFPAY ==
--- NOTE | 2025-03-01 11:08 | A.OFFVIS_ITS ---
VS Expanded 03/01/25 11:23 Height 5 ft 5 in Weight 229 lb BMI 38.1 Intake Visit Reasons: Type 2 diabetes mellitus with hyperglycemia Allergies codeine Allergy (Intermediate, Verified 02/24/25 14:27) Alphonse Nutrition Presentation Details: Pt presents for MNT TV for T2DM, newly dx Pt reports blood glucose are improving with 94% within range Pt is interested in structured meal planning , tried wt watchers in the past and was helpful Typical meal 9 am breakfast: potatoes, egg beaters , water 12 lunch: salad/chickpeas and eggs or chicken 6 pm: high protein pasta/chicken, salad, water physical activity: sedentary r/t RA/OA etoh/smoking---- food frequency fruits: 0-1/d vex/wk dairy: 2/da fish 0-1/wk BS Monitoring Most Recent Diabetes Results: Cholesterol, (<200) 187 mg/dL 12/29/24 HDL Cholesterol, (>40) 46 mg/dL 12/29/24 Triglycerides, (<150) 296 mg/dL H 12/29/24 Creatinine, (0.5-1.4) 0.84 mg/dL 12/29/24 BUN, (9-16) 16 mg/dL 12/29/24 Sodium, (135-145) 138 mmol/L 12/29/24 Potassium, (3.3-5.1) 4.1 mmol/L 12/29/24 Chloride, (96-108) 100 mmol/L 12/29/24 Carbon Dioxide, (22-29) 25 mmol/L 12/29/24 Calcium, (8.4-10.2) 9.7 mg/dL 12/29/24 AST, (5-31) 24 U/L 12/29/24 ALT, (0-31) 11 U/L 12/29/24 Total Protein, (6.5-8.0) 7.5 g/dL 12/29/24 Albumin, (3.5-5.0) 4.2 g/dL 12/29/24 [id number] Equation Height: 5 ft 5 in Weight: 229 lb Resting Metabolic Rate: 1564.16 Calculated Activity Level: Sedentary Calories Needed to Maintain Weight: 1876.99 Diagnosis Nutrition problem #1: food nutri know defi As related to (etiology) #1: diagnosis As evidenced by (sign/symptom) #1: knowledge deficit of diet [facility] Medical History (Updated 02/24/25 @ 16:57 by MARK Phelan) Personal history of nicotine dependence DM2 (diabetes mellitus, type 2) Chronic constipation Polyarthralgia Nephrolithiasis Surgical History No pertinent past surgical history Family History Daughter Mental health disorder Social History Housing: Apartment Patient Tobacco Use Status: Former Tobacco user e-Cigarette/Vaping Use: Currently Using (sometimes ) Second Hand Smoke Exposure: No service: No Current occupational status: employed Current occupation: [employer] Current occupational exposures/hazards: No Cognitive needs: No Hearing needs: No Vision needs: No Telehealth Telehealth Telehealth Platform: Telephone Location of provider rendering services: practice address Location of patient: address on file Patient Identification confirmed using: Name, : Yes Telehealth method: voice only Patient verbally consented to treatment: Yes Patient verbally consented to billing insurance company: Yes Patient informed of any privacy concerns related to visit: Yes Minutes spent on Phone/Video with Pt.: 30 Assessment & Plan Assessment & Plan (1) DM2 (diabetes mellitus, type 2): Code(s): E11.9 - Type 2 diabetes mellitus without complications Category: Medical Plan: Wt: 104 Kg ( 03/10 ) Est kcal needs as per MSJ: 1700 (40% carb, 30% protein/fat) Est fluid needs as per 25-30 ml/d: 3100 Est prot per day as per 1 g/kg bw: 100 Recommend fiber intake : 8-10 g per day and gradually increase to 25-28 g per day for women and 35-38 g for men or as tolerated Recommend sodium intake per day : less than 2300 mg Educated patient on: ( R = reviewed V = verbalizes understanding N/R = needs review N/A = not applicable * Food sources of carbohydrate, adequate serving sizes and its role in various health conditions: R V N/R * Differences between complex carbohydrates a simple carbohydrates, role of fiber in diet: R * Lean protein sources of foods: R * Differences between types of fats and role in diet (mono on saturated fat fatty acids, saturated fatty acids, trans fats): R V N/R * Food sources of sodium in salt and healthy modifications for heart health in kidney health: R V R/V * Vitamins and minerals: R V N/R * Healthy plate method concept: R V N/R * Physical activity: Benefits a precaution: R V N/R * Hypoglycemia protocol (rule of 15): R V N/R * Dietary prevention of Hyperglycemia: R Patient Instructions: Have 3 meals per day and 0-3 snacks if needed Reduce total carb per meal to 45 g carb and 0-20 g carb as snack Include lean protein in each meal (3-4 oz) and at least 1 oz with the snack Coding Level of Care Code Nutr Indiv Intake (67823) Diagnoses DM2 (diabetes mellitus, type 2) E11.9 Time Spent (min) 30
--- OUTSIDE RECORDS SUMMARY | 2025-03-01 15:22 | XMS_ITS | Clinical Summary ---
Author Organization [facility] Facility Address [address] [place] [address], [place] [address] Care Team Providers Care Welding Machine Operator Gas Metal Arc Name Role Phone Nolan Taylor NP Primary Care Provider [phone] Social History Tobacco Use Types Packs/Day Years [...] patient's age to complete this topic Insurance Care Teams Welding Machine Operator Gas Metal Arc Relationship Specialty Start Date End Date Nolan Taylor NP [facility] [place] [address] PCP - General Nurse Practitioner 12/15/22
[2025-03-07 21:10] VITALS: BMI 38.1
== END 2025-03-01 14:51 | disposition home or self-care (01) ==
LOC: HO.ENCR 14:50
PROVIDERS: PCP Nurse Practitioner Family; Visit Provider Dietitian, Registered
DX: E11.9 Type 2 diabetes mellitus without complications (principal)

== ENCOUNTER → 2025-03-01 14:50 | Outpatient (BNVA) | payer MEDICARE, SELFPAY | PROVIDERS: PCP Nurse Practitioner Family; Visit Provider Dietitian, Registered | DX: E11.9 Type 2 diabetes mellitus without complications (principal) | CPT/HCPCS: 97802 ==

== ENCOUNTER 2025-04-21 13:23 | Outpatient (AMB) | payer MEDICARE, SELFPAY ==
--- NOTE | 2025-04-21 13:26 | MHC.OFFVIS ---
Vital Signs 04/21/25 13:36 Height 5 ft 5 in Weight 220 lb 0.341 oz BMI 36.6 BP 112/74 Blood Pressure Location Rt brachial Position Sitting Pulse 96 Pulse Source Pulse Oximeter Pulse Oximetry (%) 99 Intake Visit Reasons: Type II diabetes Intake Note: Patient present today to follow up on Type 2 Diabetes Mellitus. Last Diabetic Eye exam: 01/26/2025 [facility] Last Podiatry Visit: Does not see a Broadcast Technician Random Glucose: 108 mg/dl HgA1C: 6.8% 04/21/2025 Jewellery Designer Required: No Accompanied by: Daughter Allergies codeine Allergy (Intermediate, Verified 04/21/25 13:37) Hives HPI Comments Details: This is a 70-year-old female with a past medical history of uncontrolled diabetes, microalbuminuria, rheumatoid arthritis and anemia presenting for follow up. She is here with her daughter, Cammy. She has had type 2 diabetes since 2022. Her hemoglobin A1c is 6.8%. Reviewed CGM data CGM active 97% G RI 6.2% Glucose variability 14.1% Very high 0% High 0% Target range 100% Hypoglycemia 0% She has had occasional low blood sugars overnight. No symptoms. Treats with juice. Current medication regimen: Lantus 16 units at bedtime and Mounjaro 7.5 mg weekly. She would like to increase the dose of Mounjaro to continue to promote weight loss. She does not feel like it has that much of an effect on her appetite but she has been putting a lot of effort into following a very healthy, low-carbohydrate, balanced diet. Past medication: Metformin discontinued due to diarrhea Met with dietitian. Hyperglycemia symptoms: None Eye exam: [facility]-no retinopathy Microvascular complications: Microalbuminuria Macrovascular complications: None Hypertension: treated with metoprolol extended-release 100 mg daily, lisinopril-HCTZ 20-25 mg daily Hyperlipidemia: treated with rosuvastatin 10 mg daily ROS: Constitutional: No unexplained weight loss, fever, chills, fatigue or night sweats. Eyes: No vision changes, blurry vision, double vision Respiratory: No shortness of breath Cardiovascular: No chest pain, chest pressure or chest discomfort. No palpitations or pedal edema. Gastrointestinal: No anorexia, nausea, vomiting or diarrhea. No abdominal pain Neurologic: No headache, dizziness or syncope. Endocrine: No cold or heat intolerance. No polyuria or polydipsia. Physical exam: Constitutional: Alert, in no distress. Neck: Supple, Full range of motion. No lymphadenopathy. No palpable thyroid masses. Respiratory: Clear to auscultation. Cardiovascular: S1 S2 regular. No murmurs. [facility] Medical History (Updated 04/21/25 @ 14:11 by MARK Phelan) Obesity, class 2 Uncontrolled diabetes mellitus with hyperglycemia Controlled type 2 diabetes mellitus Personal history of nicotine dependence DM2 (diabetes mellitus, type 2) Chronic constipation Polyarthralgia Nephrolithiasis Surgical History No pertinent past surgical history Family History Daughter Mental health disorder Social History Housing: Apartment Patient Tobacco Use Status: Former Tobacco user e-Cigarette/Vaping Use: Currently Using (sometimes ) Second Hand Smoke Exposure: No service: No Current occupational status: employed Current occupation: [employer] Current occupational exposures/hazards: No Cognitive needs: No Hearing needs: No Vision needs: No Physical Exam Vital Signs: Last Vital Signs Pulse 96 04/21/25 13:36 BP 112/74 04/21/25 13:36 Pulse Ox 99 04/21/25 13:36 BMI result Body Mass Index 36.6 Office Procedures Glucose Monitoring Details Details: See [facility] [address] - Glucose monitoring, continuous-physician I&R Procedure code (CPT) selection complete Results AMB Hemoglobin A1c AMB Hemoglobin A1c 6.8 % Last Edit by CESILIA Villaseñor on 04/21/25 13:52 Results Reviewed Results Reviewed: Laboratory Last Values Glucose (Clinic) 108 mg/dL (60-115) 04/21/25 13:34 Laboratory Tests 12/03/22 12/03/22 08/05/23 08:58 09:00 14:26 Creatinine Estimated GFR Hgb A1c (Clinic) 6.1 H Hemoglobin A1c % 7.0 Triglycerides Cholesterol LDL Cholesterol, Calc HDL Cholesterol TSH Urine Creatinine 330.21 Urine Microalbumin 87.0 Microalb/Creat Ratio 26.3 12/29/24 12/29/24 09:59 11:15 Creatinine 0.84 Estimated GFR > 60 Hgb A1c (Clinic) Hemoglobin A1c % 13.4 H Triglycerides 296 H Cholesterol 187 LDL Cholesterol, Calc 82 HDL Cholesterol 46 TSH 0.87 Urine Creatinine Urine Microalbumin Microalb/Creat Ratio Laboratory Tests 12/29/24 11:15 AST 24 ALT 11 Assessment & Plan Assessment & Plan (1) Controlled type 2 diabetes mellitus: Code(s): E11.9 - Type 2 diabetes mellitus without complications Category: Medical (2) Obesity, class 2: Code(s): E66.812 - Obesity, class 2 Category: Medical Plan In summary this is a 70-year-old female with with controlled type 2 diabetes. Discussed pathophysiology of Type II Diabetes Mellitus with the patient in detail.? I explained the continuous absorption process operator risks and complications associated with uncontrolled diabetes including nephropathy, neuropathy, peripheral vascular disease, retinopathy, increased risk of heart disease and stroke.? I congratulated the patient on weight loss. She will continue the diabetic diet. Continue regular eye exams. Increase Mounjaro to 10 mg weekly and decrease Lantus insulin to 6 units at bedtime. If fasting sugars are over 130 or blood sugars after meals are greater than 180 she can increase Lantus to 10 units at bedtime. She met with a dietitian. She declined to follow up sooner than 3 months for a medication check after implementing changes, but she will contact the office if she experiences hypo or hyperglycemia. Orders: Orders AMB Hemoglobin A1c Today E11.9 - Type 2 diabetes mellitus without complications AMB Glucose Monitoring Today E11.9 - Type 2 diabetes mellitus without complications Medications: New tirzepatide (Mounjaro) 10 mg (0.5 mL) subcut QWEEK 2 mL 3RF Changed From insulin glargine (Lantus Solostar U-100 Insulin) 16 units (0.16 mL) subcut QPM 15 mL 5RF E11.65 - Type 2 diabetes mellitus with hyperglycemia To insulin glargine (Lantus Solostar U-100 Insulin) 6 units (0.06 mL) subcut QPM 15 mL 5RF E11.65 - Type 2 diabetes mellitus with hyperglycemia Discontinued gabapentin Discontinued Reason: Doctor's Order 400 mg PO TID 30 days 90 caps 3RF metformin ER Discontinued Reason: Doctor's Order 500 mg PO DAILY 90 days 90 tabs 2RF tirzepatide (Mounjaro) Discontinued Reason: Doctor's Order 7.5 mg (0.5 mL) subcut QWEEK 2 mL 0RF Patient Instructions: Increase Mounjaro 10 mg once weekly Reduce Lantus to 6 units nightly. If you experience low blood sugar, treat this by eating a chewable fruit candy like skittles or jelly beans (about 8 pieces), 4 ounces (1/2 cup) of fruit juice (not diet), 1 tablespoon of honey or 4 glucose tablets. If your blood sugar is under 50, take double the amount of one of the above. Recheck your blood sugar in 15 minutes. Coding Level of Care Code Est Pt Level 4 (77051) Diagnoses Controlled type 2 diabetes mellitus E11.9 Obesity, class 2 E66.812 CPT Codes Details - CPT: 97864 - Glucose monitoring, continuous-physician I&R ([id number])
--- OUTSIDE RECORDS SUMMARY | 2025-04-21 13:32 | XMS_ITS | Clinical Summary ---
Author Organization [facility] Facility Address [address] [place] [address], [place] [address] Care Team Providers Care Communication Studies Professor Name Role Phone Nolan Taylor NP Primary Care Provider [phone] Social History Tobacco Use Types Packs/Day Years [...] to complete this topic Insurance Care Teams Communication Studies Professor Relationship Specialty Start Date End Date Nolan Taylor [place] [address] PCP - General Nurse Practitioner 12/15/22
[2025-04-21 13:36] VITALS: BP 112/74; PULSE 96; O2SAT 99; BMI 36.6
[2025-04-21 13:39] LABS: Glucose, Whole Blood 108 mg/dL (60-115)
== END 2025-04-21 14:10 | disposition home or self-care (01) ==
LOC: HO.ENCR 13:23
PROVIDERS: PCP Nurse Practitioner Family; Visit Provider Physician Assistant Medical
DX: E11.9 Type 2 diabetes mellitus without complications (principal); E66.812 Obesity, class 2

== ENCOUNTER → 2025-04-21 13:23 | Outpatient (BNVA) | payer MEDICARE, SELFPAY | PROVIDERS: PCP Nurse Practitioner Family; Visit Provider Physician Assistant Medical | DX: E11.65 Type 2 diabetes mellitus with hyperglycemia (principal); E66.812 Obesity, class 2; Z79.4 Long term (current) use of insulin; Z68.36 Body mass index [BMI] 36.0-36.9, adult | CPT/HCPCS: 82947; 83036; 99212 ==

== ENCOUNTER 2025-06-27 13:44 | Outpatient (AMB) | payer MEDICARE, SELFPAY ==
--- NOTE | 2025-06-27 13:48 | A.OFFVIS_ITS ---
Intake Vital Signs 06/27/25 13:49 Height 5 ft 5 in Weight 209 lb BMI 34.8 BP 102/60 Blood Pressure Location Rt brachial Position Sitting Respiration 16 Pulse 71 Pulse Source Pulse Oximeter Temp 97.9 F Temp Source Oral Pulse Oximetry (%) 98 Oxygen Delivery Method Room Air Intake Visit Reasons: OUMAR G0439 Stock Speculator Required: No Accompanied by: Self / Same As Patient Allergies codeine Allergy (Intermediate, Verified 06/27/25 14:14) Hives Medication List - Last Reconciled 06/27/25 by RADHA Srivastava abatacept (Orencia ClickJect) mg subcut acetaminophen ER 1,300 mg PO Q8H alcohol swabs (Alcohol Pads) 1 pad topical TID calcium carbonate (Calcium 600) 600 mg PO DAILY cholecalciferol (vitamin D3) 50 mcg PO DAILY dextrose (TRUEplus Glucose) 15 grams (32 mL) PO Q15M PRN [extended shower chair Use daily for safety in personal care. RA/OA for multiple joints including neck, back, hips, knees.] FreeStyle [place]oli Lite (blood-glucose meter) tid NS FreeStyle Lancets (lancets) tid testing NS FreeStyle Lite Strips (blood sugar diagnostic) TID NS FreeStyle Test (blood sugar diagnostic) tid testing NS gabapentin 300 mg PO TID PRN 30 days insulin glargine (Lantus Solostar U-100 Insulin) 6 units (0.06 mL) subcut QPM lancets (OneTouch Delica Lancets) Use to check fasting blood sugar and a random blood sugar daily. leflunomide 20 mg PO DAILY lisinopril-hydrochlorothiazide 20-25 mg 1 tab PO DAILY 90 days magnesium oxide 500 mg PO DAILY metoprolol succinate ER 100 mg PO DAILY 90 days pantoprazole 20 mg PO BID 90 days pen needle, diabetic Inject insulin once a day potassium mg PO .qd rosuvastatin 10 mg PO DAILY 90 days sertraline 50 mg PO DAILY tirzepatide (Mounjaro) 10 mg (0.5 mL) subcut QWEEK HPI V G0439 HPI Details awv: CCC and PPP in scan pile [facility] Medical History Obesity, class 2 Uncontrolled diabetes mellitus with hyperglycemia Controlled type 2 diabetes mellitus Personal history of nicotine dependence DM2 (diabetes mellitus, type 2) Chronic constipation Polyarthralgia Nephrolithiasis Surgical History No pertinent past surgical history Family History Daughter Mental health disorder Social History Housing: Apartment Patient Tobacco Use Status: Former Tobacco user e-Cigarette/Vaping Use: Currently Using (sometimes ) Second Hand Smoke Exposure: No service: No Current occupational status: employed Current occupation: [employer] Current occupational exposures/hazards: No Cognitive needs: No Hearing needs: No Vision needs: No Questionnaire Medicare Wellness Checkup [age] What gender do you identify with?: female During the past 4 weeks, how much have you been bothered by emotional problems such as feeling anxious, depressed, irritable, sad or downhearted, and blue?: slightly During the past 4 weeks, has your physical & emotional health limited your social activities with family, friends, neighbors, or groups?: not at all During the past 4 weeks, how much bodily pain have you generally had?: mild pain During the past 4 weeks, was someone available to help you if you needed & wanted help?: yes, quite a bit During the past 4 weeks, what was the hardest physical activity you could do for at least 2 minutes?: moderate Can you get to places out of walking distance without help? (For eg., can you travel alone on buses, taxis or drive your car?): Yes Can you go shopping for groceries or clothes without someone's help?: No Can you prepare your own meals?: Yes Can you do your housework without help?: No Because of any health problems, do you need the help of another person with your personal care needs such as eating, bathing, dressing or getting around the house?: No Can you handle your own money without help?: Yes During the past 4 weeks, how would you rate your health in general?: good During the past 4 weeks how have things been going for you?: pretty well Are you having difficulties driving your car?: sometimes Do you always fasten your seat belt when you are in a car?: yes, usually During past 4 weeks, have you been bothered by the following: never: Falling or dizzy when standing up, Sexual problems?, Trouble eating well? and Problems using the telephone?, sometimes: Tiredness or fatigue? and often: Teeth or denture problems? Have you fallen 2 or more times in the past year?: No Are you afraid of falling?: No Are you a smoker?: no Have you been given information to help with the following?: yes: Hazards in your house that might hurt you? and yes: Keeping track of your medications? How often do you have trouble taking medicines the way you have been told to take them?: I always take medicine as prescribed How confident are you that you can control & manage most of your health problems?: very confident What is your race?: White Mini Mental State Exam (MMSE) Orientation What is the (year) (season) (date) (day) (month)?: year, season, date, day and month Where are we (state) (county) (town or city) (hospital) (floor)?: state, county, town or city, hospital/clinic and floor Registration Name of 3 unrelated objects clearly and slowly, then ask patient to repeat all 3 of them. (1st repeat determines score. Make sure they can repeat all three): object 1, object 2 and object 3 Attention & Calculation (CHOOSE ONE) Spell WORLD backwards (DLROW): 5 letters Recall Ask patient to repeat the 3 items from question #3.: object 1, object 2 and object 3 Language Show patient a wristwatch & ask what it is. Repeat for pencil.: watch and pencil Ask the patient to repeat the phrase 'No ifs, ands, or buts' after you.: correct Ask the patient to 'take a piece of paper with their right hand' 'fold paper in half' 'place paper on floor': take paper in right hand, fold paper in half and place paper on floor Print the sentence 'CLOSE YOUR EYES' on a piece. If patient actually closes eyes then score.: followed written direction Give patient a blank piece of paper & ask to write a sentence. Score if it co ntains a noun & verb.: sentence contains subject and verb Ask patient to copy figure of intersecting pentagons exactly. Score if all 10 angles & 2 intersects are included.: all 10 angles present & 2 are intersected Score Score: 30 Activity of Daily Living Bathing - sponge bath, tub bath or shower: receives no assistance (gets in/out by self, if usual bathing means Dressing - getting clothes from closets & drawers, including inner/outer garments & fasteners.: gets clothes & gets completely dressed without help Toileting - going to the 'toilet room' for urine/bowel elimination & cleaning self/arranging clothes: goes to toilet room, cleans self, arranges clothes without help Transfer: moves in & out of bed and chair without help (may use support object) Continence: controls urination/bowel movements completely by self Feeding: feeds self without help Total Score: 0 Information obtained from: patient Using telephone: independent Traveling: independent Shopping: independent Preparing meals: independent Housework: independent Taking medicine: independent Managing money: independent PHQ-9 Over the last 2 weeks, how often have you been bothered by any of the following problems? 1. Little interest or pleasure in doing things: not at all 2. Feeling down, depressed, or hopeless: not at all 3. Trouble falling or staying asleep, or sleeping too much: several days 4. Feeling tired or having little energy: several days 5. Poor appetite or overeating: not at all 6. Feeling bad about yourself - or that you are a failure or have let yourself or your family down: not at all 7. Trouble concentrating on things, such as reading the newspaper or watching television: not at all 8. Moving or speaking so slowly that other people could have noticed. Or the opposite - being so fidgety or restless that you have been moving around a lot more than usual: not at all 9. Thoughts that you would be better off or of hurting yourself in some way: not at all Total score: 2 Depression Screening Interpretation: Negative Depression Screening Done: Yes 27139 - PHQ-9 Billing: Yes Source: Developed by Drs. Sanjay Mcclendon, Phyllis Christopher, Brennan Shah and colleagues, with an educational ujan from [email or web address]. Physical Exam Vital Signs: Last Vital Signs Temp 97.9 F 06/27/25 13:49 Pulse 71 06/27/25 13:49 Resp 16 06/27/25 13:49 BP 102/60 06/27/25 13:49 Pulse Ox 98 06/27/25 13:49 Oxygen Delivery Method Room Air 06/27/25 13:49 BMI result Body Mass Index 34.8 Neuro Other: able to stand from seated position, able to tandem walk, passed whisper test, neg rhomber. Assessment & Plan Assessment & Plan (1) Post-menopausal: Code(s): Z78.0 - Asymptomatic menopausal state (2) DM2 (diabetes mellitus, type 2): Code(s): E11.9 - Type 2 diabetes mellitus without complications Plan . Orders: Orders Comprehensive [place]. Panel Fast Today E11.9 - Type 2 diabetes mellitus without complications TSH reflex Free T4 Today E11.9 - Type 2 diabetes mellitus without complications XR DEXA axial skeleton Today Z78.0 - Asymptomatic menopausal state Complete Blood Count Auto Diff Today E11.9 - Type 2 diabetes mellitus without complications UA CC w/rflx Micro + Cult Today E11.9 - Type 2 diabetes mellitus without complications Lipid Panel Today E11.9 - Type 2 diabetes mellitus without complications Vitamin D 25-OH Total Today E11.9 - Type 2 diabetes mellitus without complications Quality Reporting (2019) Depression/Bipolar (159/160/161/177) PHQ-9: Total score: 2 Coding Level of Care Code Medicare First (G0438) Diagnoses Post-menopausal Z78.0 DM2 (diabetes mellitus, type 2) E11.9 CPT Codes Advance Care Planning - Time spent: 1-15 minutes, on File ([id number]) Additional Codes PHQ-9 - 02293 - PHQ-9 Billing: Yes ([id number]) Advance Care Planning Forms completed: Health Care Proxy (in scan pile), MOLST (in scan pile) and Living will (encouraged to get done) Time spent: 1-15 minutes, on File Actual minutes spent: 10
[2025-06-27 13:49] VITALS: BP 102/60; PULSE 71; RESP 16; TEMP 36.6; O2SAT 98; BMI 34.8
--- OUTSIDE RECORDS SUMMARY | 2025-06-27 15:20 | XMS_ITS | Clinical Summary ---
Author Organization [facility] Facility Address [address] [place] [address], [place] [address] Care Team Providers Care Contract Administration Manager Name Role Phone Nolan Taylor NP Primary Care Provider [phone] Social History Tobacco Use Types Packs/Day Years [...] patient's age to complete this topic Insurance [place] [address] Care Teams Contract Administration Manager Relationship Specialty Start Date End Date Nolan Taylor NP [facility] [place] [address] PCP - General Nurse Practitioner 12/15/22
== END 2025-06-27 14:52 | disposition home or self-care (01) ==
LOC: HO.HMCC 13:45
PROVIDERS: PCP Nurse Practitioner Family; Visit Provider Nurse Practitioner Family
DX: Z00.00 Encounter for general adult medical examination without abnormal findings (principal); Z78.0 Asymptomatic menopausal state; E11.9 Type 2 diabetes mellitus without complications

== ENCOUNTER → 2025-06-27 13:44 | Outpatient (BNVA) | payer MEDICARE, SELFPAY | PROVIDERS: PCP Nurse Practitioner Family; Visit Provider Nurse Practitioner Family | DX: Z13.31 Encounter for screening for depression (principal) | CPT/HCPCS: 96127 ==

== ENCOUNTER 2025-07-25 13:00 | Outpatient (AMB) | payer MEDICARE, SELFPAY ==
[2025-07-25 13:07] VITALS: BP 118/66; PULSE 66; O2SAT 98; BMI 34.7
--- NOTE | 2025-07-25 13:07 | MHC.OFFVIS ---
Vital Signs 07/25/25 13:07 Height 5 ft 5 in Weight 208 lb 8.917 oz BMI 34.7 BP 118/66 Blood Pressure Location Rt brachial Position Sitting Pulse 66 Pulse Source Pulse Oximeter Pulse Oximetry (%) 98 Oxygen Delivery Method Room Air Intake Visit Reasons: Type II diabetes Intake Note: Patient present today to follow up on Type 2 Diabetes Mellitus. Last Diabetic Eye exam: 01/26/2025 [facility] Last Podiatry Visit: Does not see a Director Of Vocational Guidance Random Glucose: 122 mg/dl HgA1C: 6.2% Machine Cloth Measurer Required: No Accompanied by: Daughter Allergies codeine Allergy (Intermediate, Verified 07/25/25 13:12) Hives Medication List - Last Reconciled 07/25/25 by MARK Phelna abatacept (Orencia ClickJect) mg subcut acetaminophen ER 1,300 mg PO Q8H alcohol swabs (Alcohol Pads) 1 pad topical TID calcium carbonate (Calcium 600) 600 mg PO DAILY cholecalciferol (vitamin D3) 50 mcg PO DAILY dextrose (TRUEplus Glucose) 15 grams (32 mL) PO Q15M PRN [extended shower chair Use daily for safety in personal care. RA/OA for multiple joints including neck, back, hips, knees.] FreeStyle Watkins Lite (blood-glucose meter) tid NS FreeStyle Lancets (lancets) tid testing NS FreeStyle Lite Strips (blood sugar diagnostic) TID NS FreeStyle Test (blood sugar diagnostic) tid testing NS gabapentin 300 mg PO TID PRN 30 days insulin glargine (Lantus Solostar U-100 Insulin) 6 units (0.06 mL) subcut QPM lancets (e-INFO TechnologiesTouch Delica Lancets) Use to check fasting blood sugar and a random blood sugar daily. leflunomide 20 mg PO DAILY lisinopril-hydrochlorothiazide 20-25 mg 1 tab PO DAILY 90 days magnesium oxide 500 mg PO DAILY metoprolol succinate ER 100 mg PO DAILY 90 days pantoprazole 20 mg PO BID 90 days pen needle, diabetic Inject insulin once a day potassium mg PO .qd rosuvastatin 10 mg PO DAILY 90 days sertraline 50 mg PO DAILY tirzepatide (Mounjaro) 10 mg (0.5 mL) subcut QWEEK HPI Comments Details: This is a 70-year-old female with a past medical history of uncontrolled diabetes, microalbuminuria, rheumatoid arthritis and anemia presenting for follow up. She is here with her daughter, Cammy. She has had type 2 diabetes since 2022. Her hemoglobin A1c is 6.2%. Reviewed Michael 3 data for the past 2 weeks CGM active 97% G SC 5.8% Glucose variability 14.6% 100% of readings are within target range. Interval weight loss of 11 lb. Patient is discharged she has not lost more weight, and her daughter Cammy says she is very hard on herself. She is following a very strict low-carbohydrate diet. Sometimes she skips meals. She weighs herself every day. The sensor was alerting her to frequent lows despite patient being asymptomatic. She tried using her glucometer, but it did not work. She is not treating the lows. We discussed the recent recall of Michael 3+. Current medication regimen: Mounjaro 10 mg weekly Past medication: Metformin discontinued due to diarrhea Met with dietitian. Hyperglycemia symptoms: None Eye exam: [facility]-no retinopathy Microvascular complications: Microalbuminuria Macrovascular complications: None Hypertension: treated with metoprolol extended-release 100 mg daily, lisinopril-HCTZ 20-25 mg daily Hyperlipidemia: treated with rosuvastatin 10 mg daily ROS: Constitutional: No fevers or chills Eyes: No vision changes, blurry vision, double vision Respiratory: No shortness of breath Cardiovascular: No chest pain Gastrointestinal: No anorexia, nausea, vomiting or diarrhea. No abdominal pain Neurologic: No headache, dizziness or syncope. Endocrine: No cold or heat intolerance. No polyuria or polydipsia. Physical exam: Constitutional: Alert, in no distress. Neck: Supple, Full range of motion. No lymphadenopathy. No palpable thyroid masses. Respiratory: Clear to auscultation. Cardiovascular: S1 S2 regular. No murmurs. [facility] Medical History (Updated 07/25/25 @ 13:16 by MARK Phelan) Essential hypertension Hypercholesterolemia Obesity, class 2 Uncontrolled diabetes mellitus with hyperglycemia Controlled type 2 diabetes mellitus Personal history of nicotine dependence DM2 (diabetes mellitus, type 2) Chronic constipation Polyarthralgia Nephrolithiasis Surgical History No pertinent past surgical history Family History Daughter Mental health disorder Social History Housing: Apartment Patient Tobacco Use Status: Former Tobacco user e-Cigarette/Vaping Use: Currently Using (sometimes ) Second Hand Smoke Exposure: No service: No Current occupational status: employed Current occupation: [employer] Current occupational exposures/hazards: No Cognitive needs: No Hearing needs: No Vision needs: No Physical Exam Vital Signs: Last Vital Signs Pulse 66 07/25/25 13:07 BP 118/66 07/25/25 13:07 Pulse Ox 98 07/25/25 13:07 Oxygen Delivery Method Room Air 07/25/25 13:07 BMI result Body Mass Index 34.7 Office Procedures Glucose Monitoring Details Details: See HPI 33538 - Glucose monitoring, continuous-physician I&R Procedure code (CPT) selection complete Results AMB Hemoglobin A1c AMB Hemoglobin A1c 6.2 % Last Edit by CESILIA Aden on 07/25/25 13:30 Results Reviewed Results Reviewed: Laboratory Last Values Glucose (Clinic) 122 mg/dL (60-115) H 07/25/25 13:14 Hgb A1c (Clinic) 6.2 % (4.0-6.0) H 07/25/25 13:18 Laboratory Tests 12/03/22 12/03/22 08/05/23 08:58 09:00 14:26 Creatinine Estimated GFR Hgb A1c (Clinic) 6.1 H Hemoglobin A1c % 7.0 Triglycerides Cholesterol LDL Cholesterol, Calc HDL Cholesterol TSH Urine Creatinine 330.21 Urine Microalbumin 87.0 Microalb/Creat Ratio 26.3 12/29/24 12/29/24 09:59 11:15 Creatinine 0.84 Estimated GFR > 60 Hgb A1c (Clinic) Hemoglobin A1c % 13.4 H Triglycerides 296 H Cholesterol 187 LDL Cholesterol, Calc 82 HDL Cholesterol 46 TSH 0.87 Urine Creatinine Urine Microalbumin Microalb/Creat Ratio Laboratory Tests 12/29/24 11:15 AST 24 ALT 11 Assessment & Plan Assessment & Plan (1) Controlled type 2 diabetes mellitus: Code(s): E11.9 - Type 2 diabetes mellitus without complications Category: Medical (2) Obesity, class 2: Code(s): E66.812 - Obesity, class 2 Category: Medical (3) Hypercholesterolemia: Code(s): E78.00 - Pure hypercholesterolemia, unspecified Category: Medical (4) Essential hypertension: Code(s): I10 - Essential (primary) hypertension Category: Medical Plan In summary this is a 70-year-old female with with controlled type 2 diabetes. Discussed pathophysiology of Type II Diabetes Mellitus with the patient in detail.? I explained the assistant terminal manager risks and complications associated with uncontrolled diabetes including nephropathy, neuropathy, peripheral vascular disease, retinopathy, increased risk of heart disease and stroke.? Continue regular eye exams. I advised the patient that she needs to avoid skipping meals and increase her protein intake. She can substitute a protein bar or shake if she does not want to eat a full meal. I advised her to stop weighing herself every day, she can weigh herself once a week. I congratulated her on her success. The nurse will trouble shoot her glucometer with her today, and I sent a new glucometer and supplies to the pharmacy to use if this when continues to malfunction. If her sensor alerts her to a low she should check a fingerstick. Continue Mounjaro 10 mg weekly for now. She met with a dietitian. Declines referral back. Follow up in 4-6 weeks. Orders: Orders AMB Hemoglobin A1c Today E11.9 - Type 2 diabetes mellitus without complications, Z13.9 - Encounter for screening, unspecified AMB Glucose Monitoring Today E11.9 - Type 2 diabetes mellitus without complications Medications: New blood-glucose meter (FreeStyle Lite Meter kit) as directed to check blood glucose 1 ea 0RF E11.9 - Type 2 diabetes mellitus without complications Changed From FreeStyle Lite Strips (blood sugar diagnostic) TID 100 ea 5RF NS E11.9 - Type 2 diabetes mellitus without complications To FreeStyle Lite Strips (blood sugar diagnostic) once daily to check blood glucose 100 ea 5RF NS E11.9 - Type 2 diabetes mellitus without complications From FreeStyle Lancets (lancets) tid testing 100 ea 5RF NS E11.9 - Type 2 diabetes mellitus without complications To FreeStyle Lancets (lancets) once daily to check blood glucose 100 ea 5RF NS E11.9 - Type 2 diabetes mellitus without complications Discontinued insulin glargine (Lantus Solostar U-100 Insulin) Discontinued Reason: Doctor's Order 6 units (0.06 mL) subcut QPM 15 mL 5RF E11.65 - Type 2 diabetes mellitus with hyperglycemia Coding Level of Care Code Est Pt Level 4 (07108) Diagnoses Controlled type 2 diabetes mellitus E11.9 Obesity, class 2 E66.812 Hypercholesterolemia E78.00 Essential hypertension I10 CPT Codes Details - CPT: 04218 - Glucose monitoring, continuous-physician I&R ([id number])
[2025-07-25 13:19] LABS: Glucose, Whole Blood 122 mg/dL (60-115)
== END 2025-07-25 13:53 | disposition home or self-care (01) ==
LOC: HO.ENCR 13:02
PROVIDERS: PCP Nurse Practitioner Family; Visit Provider Physician Assistant Medical
DX: E11.9 Type 2 diabetes mellitus without complications (principal); E66.812 Obesity, class 2; E78.00 Pure hypercholesterolemia, unspecified; I10 Essential (primary) hypertension; Z13.9 Encounter for screening, unspecified